=== PATIENT | male | born 1965 | race Hispanic/Latino ===

== ENCOUNTER 2018-07-05 10:38 | Emergency (ER) | payer OTHER ==
[2018-07-05] MEDS ORDERED: OCTYL 2-CYANOACRYLATE 1 EACH TP ONE (10:56)
[2018-07-05] MEDS ORDERED: TETANUS/DIPHTHERIA TOXOID [ADULT] 0.5 ML VIAL IM ONE (10:57)
== END 2018-07-05 11:15 | disposition home or self-care (01) ==
LOC: EDH 10:38
DX: S01.81XA Laceration without foreign body of other part of head, initial encounter (principal); W20.8XXA Other cause of strike by thrown, projected or falling object, initial encounter; Y93.89 Activity, other specified; Y92.89 Other specified places as the place of occurrence of the external cause; Y99.0 Civilian activity done for income or pay
CPT/HCPCS: 12051; 90471; 90714